=== PATIENT | female | born 1950 | race Caucasian/White ===

== ENCOUNTER 2019-06-10 19:30 | Emergency (ER) | payer OTHER ==
[~2019-06-10] VITALS: Ht 152.4 cm; Wt 104.3 kg
[~2019-06-10 19:30] MED LIST: HUMALOG100 U/ML SQ; METFORMIN HCL500 MG PO
[2019-06-10] MEDS ORDERED: LANTUS SOL100 UNIT/1 (19:38)
== END 2019-06-10 20:14 | disposition home or self-care (01) ==
LOC: ER 19:30
DX: I82.621 Acute embolism and thrombosis of deep veins of right upper extremity (principal)

== ENCOUNTER 2019-06-11 15:02 | Outpatient (CLI) | payer OTHER ==
[~2019-06-11 15:02] MED LIST changes: +LANTUS SOL100 UNIT/1
== END 2019-06-11 15:03 | disposition home or self-care (01) ==
LOC: NUCLEAR 15:02
DX: I87.2 Venous insufficiency (chronic) (peripheral) (principal); I82.621 Acute embolism and thrombosis of deep veins of right upper extremity